=== PATIENT | female | born 1985 | race Two or more races ===

== ENCOUNTER 2019-08-28 07:56 | Day surgery (SDC) | payer OTHER ==
[~2019-08-28 07:56] MED LIST: WELLBUTRIN XL300 MG PO
== END 2019-08-28 14:15 | disposition home or self-care (01) ==
LOC: CIR.AMB 07:56
PROVIDERS: ATTEND Obstetrics & Gynecology
DX: N84.0 Polyp of corpus uteri (principal)

== ENCOUNTER → 2024-06-21 | Emergency (ER) | payer OTHER ==
[~2024-06-21] VITALS: Ht 147.3 cm; Wt 68.0 kg
[~2024-06-21] MED LIST changes: +METHYLPREDNISOLONE SOD SUCC 125 MG VIAL IM STA; +METHYLPREDNISOLONE SOD SUCC 125 MG VIAL ONE
== END | disposition home or self-care (01) ==
LOC: ER 08:35
DX: G51.0 Bell's palsy (principal); Z88.8 Allergy status to other drugs, medicaments and biological substances